=== PATIENT | male | born 1980 ===

== ENCOUNTER 2017-02-22 10:12 | Emergency (ER) | payer OTHER ==
[2017-02-22 10:17] VITALS: RESP 18
--- NOTE | 2017-02-22 10:56 | C.PDOC ---
History Of Present Illness Patient is a 36 year old male, presents to Emergency Department for evaluation of headache, and pain to left side of face, neck, and shoulder that developed 3 days ago. Patient complaints of ear pain, pain around the eye, clear runny nose , cough, phlegm for the past 3 days. Otherwise, denies shortness of breath, chest pain, vision change, nausea, vomiting, diarrhea, abdominal pain, ear discharge, or fever. Denies taking any over the counter medication for his symptoms. States his PMD is in [place], unable to recall name. past medial history of HIV (unsure of CD4 count, states it "may be in the 100s") Time Seen by Provider: 02/22/17 10:19 Chief Complaint (Nursing): Headache History Per: Patient History/Exam Limitations: no limitations Onset/Duration Of Symptoms: Days (3) Current Symptoms Are (Timing): Still Present Quality: "Pain" Preceeding Symptoms: None. denies: Visual Disturbances, Known Migraine Symptoms Associated Symptoms: denies: Photophobia, Blurred Vision, Nausea, Vomiting, Extremity Weakness Additional History Per: Patient Past Medical History Reviewed: Historical Data, Nursing Documentation, Vital Signs Vital Signs: Last Vital Signs Temp 97.6 F 02/22/17 11:44 Pulse 67 02/22/17 11:44 Resp 18 02/22/17 11:44 BP 109/74 02/22/17 11:44 Pulse Ox 95 02/22/17 12:35 - Medical History PMH: HIV Family History: States: Unknown Family Hx - Social History Hx Alcohol Use: No Hx Substance Use: No - Immunization History Hx Tetanus Toxoid Vaccination: No Hx Influenza Vaccination: No Hx Pneumococcal Vaccination: No Review Of Systems Except As Marked, All Systems Reviewed And Found Negative. Constitutional: Positive for: Sweats. Negative for: Fever, Chills Eyes: Negative for: Vision Change ENT: Positive for: Ear Pain, Nose Discharge (runny nose), Throat Pain, Other ( left side facial pain). Negative for: Ear Discharge, Nose Pain, Mouth Pain, Throat Swelling Cardiovascular: Negative for: Chest Pain, Palpitations, Light Headedness Respiratory: Positive for: Cough, Sputum. Negative for: Shortness of Breath, Hemoptysis, Wheezing Gastrointestinal: Negative for: Nausea, Vomiting, Abdominal Pain, Diarrhea Musculoskeletal: Positive for: Neck Pain (left side), Shoulder Pain (left) Skin: Negative for: Rash Neurological: Positive for: Headache. Negative for: Weakness, Numbness, Dizziness Physical Exam - Physical Exam Appears: Non-toxic, No Acute Distress Skin: Normal Color, Warm, Dry Head: Atraumatic, Normacephalic, Tenderness (maxillary sinus left side) Eye(s): bilateral: Normal Inspection, PERRL, EOMI Ear(s): Bilateral: Normal (no erythema, no bleeding or discharge) Nose: Normal Oral Mucosa: Moist Tongue: Normal Appearing Lips: Normal Appearing Throat: Normal, No Erythema, No Exudate, No Drooling Neck: Normal ROM, No Midline Cervical Tenderness, No Paracervical Tenderness, Supple Chest: Symmetrical Cardiovascular: Rhythm Regular, No Murmur Respiratory: No Accessory Muscle Use, No Rales, Rhonchi (bilaterally), No Wheezing Gastrointestinal/Abdominal: Soft, No Tenderness Extremity: Normal ROM, No Tenderness, No Deformity, No Swelling Neurological/Psych: Oriented x3, Normal Speech Gait: Steady ED Course And Treatment O2 Sat by Pulse Oximetry: 95 (RA) Pulse Ox Interpretation: Normal - Radiology CXR: Interpreted by Me, Viewed By Me CXR Interpretation: Yes: No Acute Disease Medical Decision Making Medical Decision Making: Plan: * CXR * Motrin for pain * duoneb Patient does not want nebulizer treatment. CXR shows no acute disease Patient remained afebrile alert and in no acute distress. Patient to be discharged with Rx for sinusitis. Recommend rest, fluids, hot steam or neti pot usage. Advise follow up with his PCP or clinic for further evaluation. Disposition Counseled Patient/Family Regarding: Diagnosis, Need For Followup, Rx Given - Disposition Disposition: HOME/ ROUTINE Disposition Time: 11:32 Condition: STABLE Additional Instructions: Follow up with your primary medical doctor or clinic in 2-5 days for further evaluation. Take medications as prescribed. Return to the emergency department at any time if symptoms persist or worsen. Prescriptions: Amoxicillin/Clavulanate [Augmentin 875 MG-125 MG] 1 tab PO BID #14 tab Instructions: Sinusitis (ED) Forms: [employer] (Romanian) - POA Present On Arrival: None - Clinical Impression Clinical Impression: Sinusitis - PA / BUSINESS TRAINER / Resident Statement MD/DO has reviewed & agrees with the documentation as recorded. - Scribe Statement The provider has reviewed the documentation as recorded by the Scribe Kripal Denise All medical record entries made by the Pieter were at my direction and personally dictated by me. I have reviewed the chart and agree that the record accurately reflects my personal performance of the history, physical exam, medical decision making, and the department course for this patient. I have also personally directed, reviewed, and agree with the discharge instructions and disposition.
[2017-02-22 11:45] VITALS: BP 109/74; PULSE 67; TEMP 97.6
[2017-02-22 12:35] VITALS: O2SAT 95
--- NOTE | 2017-02-22 13:40 | RAD ---
HISTORY: cough COMPARISON: None available. TECHNIQUE: Chest PA and lateral FINDINGS: LUNGS: No focal consolidation. Please note that chest x-ray has limited sensitivity for the detection of pulmonary masses. PLEURA: No significant pleural effusion identified. No definite pneumothorax . CARDIOVASCULAR: Heart size appears within normal limits. OSSEOUS STRUCTURES: No acute osseous abnormality identified. VISUALIZED UPPER ABDOMEN: Unremarkable. OTHER FINDINGS: None. IMPRESSION: No focal consolidation, significant pleural effusion, or definite pneumothorax identified.
== END 2017-02-22 11:45 | disposition home or self-care (01) ==
LOC: C.ER 10:12
DX: J32.9 Chronic sinusitis, unspecified (principal)

== ENCOUNTER 2017-07-01 20:12 | Emergency (ER) | payer OTHER ==
[2017-07-01 20:28] VITALS: O2SAT 100
[2017-07-01 21:22] LABS: BASO % 0.4 % (0.0-2.0); EOS # 0.1 K/uL (0.0-0.7); EOS % 1.3 % (0.0-4.0); HEMOGLOBIN 12.3 g/dL (12.0-18.0); LYMPH # 1.2 K/uL (1.0-4.3); LYMPH % 20.5 % (20.0-40.0); MEAN CELL VOLUME 88.6 fL (80.0-94.0); MEAN CORPUSCULAR HGB CONC 33.8 g/dL (33.0-37.0); MEAN PLATELET VOLUME 8.5 fL (7.2-11.7); MONO # 0.5 K/uL (0.0-0.8); MONO % 9.3 % (0.0-10.0); NEUT % 68.5 % (50.0-75.0); RBC 4.1 Mil/uL (4.40-5.90); RED CELL DISTRIBUTION WIDTH 15.2 % (11.5-14.5); WHITE BLOOD COUNT 5.8 K/uL (4.8-10.8)
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
[2017-07-01 21:44] LABS: CALCIUM 8.8 mg/dl (8.6-10.4); GFR AFRICAN-AMERICAN > 60; GFR NON-AFRICAN AMERICAN > 60
[2017-07-01 21:54] LABS: ALB/GLOB RATIO 0.9 (1.0-2.1); ALBUMIN 3.5 g/dL (3.5-5.0); ALT/SGPT 22 U/L (21-72); AST/SGOT 49 U/L (17-59); BLOOD UREA NITROGEN 11 mg/dL (9-20)
[2017-07-01] MEDS ORDERED: Albuterol-Ipratrop 3 mg / 0.5 (3 ml) UD INH STA (21:54)
[2017-07-01] MEDS ORDERED: Albuterol-Ipratrop 3 mg / 0.5 (3 ml) UD ONE (22:16)
[2017-07-01 22:24] VITALS: BP 104/62; PULSE 69; RESP 18; TEMP 98.3
--- NOTE | 2017-07-02 08:12 | RAD ---
HISTORY: COMPARISON: 02/22/2017. TECHNIQUE: Chest PA and lateral FINDINGS: LINES AND TUBES: None. LUNG AND PLEURA: There is mild pulmonary hyperinflation and peribronchial cuffing with streaky opacities in the lungs. There is ill-defined airspace disease in the right lower lobe. HEART AND MEDIASTINUM: The heart is not enlarged. The hilar and mediastinal contours are within normal limits. SKELETAL STRUCTURES: The bony structures are within normal limits for the patient's age. VISUALIZED UPPER ABDOMEN: Normal. OTHER FINDINGS: None. IMPRESSION: Findings are most compatible with reactive small airway disease/ viral/ atypical pneumonitis. Ill-defined airspace disease in the right lower lobe may represent atelectasis or developing pneumonia. Follow-up after medical management is recommended to ensure complete resolution.
== END 2017-07-01 22:42 | disposition home or self-care (01) ==
LOC: C.ER 20:12
DX: S80.12XA Contusion of left lower leg, initial encounter (principal); X58.XXXA Exposure to other specified factors, initial encounter; Y92.9 Unspecified place or not applicable; F11.10 Opioid abuse, uncomplicated; C85.90 Non-Hodgkin lymphoma, unspecified, unspecified site